=== PATIENT | male | born 1990 | race Caucasian/White ===

== ENCOUNTER 2016-07-18 15:35 | Emergency (ER) | payer SELFPAY ==
[~2016-07-18] VITALS: Ht 175.3 cm; Wt 82.0 kg
[~2016-07-18 15:35] MED LIST: PERC5TAB12 PO; PRED20 PO; ZOVI800T13 PO
[2016-07-18 15:39] VITALS: BP 131/77; PULSE 79; RESP 16; TEMP 98.2; O2SAT 99
[2016-07-18] MEDS ORDERED: AUGM875T3 PO (16:04)
--- NOTE | 2016-07-18 16:05 | PD ---
HPI Chief Complaint: Bite or Sting Time Seen by Provider: 16:04 Travel History International Travel<30 days: No Contact w/Intl Traveler<30days: No Traveled to known affect area: No History of Present Illness HPI Patient 26-year-old male presents emergency Department with complaints of a dog bite to his nose. Patient states he was clipping his dog's nails just prior to arrival and cut one of them too short and the dog bit him in the nose. Patient states his dog is otherwise healthy and his shots are up-to-date. He states his tetanus shot is up-to-date as well (2010). Patient denies any other wounds. PFSH Past Medical History Medical History: Denies Significant Hx Diminished Hearing: No Immunizations Current: Yes Influenza Vaccination: No Past Surgical History Surgical History: No Previous Surgery Social History Alcohol Use: Yes (occ) Tobacco Use: Yes (/2 ppd) Substance Use: No Allergies-Medications (Allergen,Severity, Reaction): Coded Allergies: No Known Allergies (Unverified , 07/18/16) Reported Meds & Prescriptions Reported Meds & Active Scripts Active Augmentin (Amoxicillin-Clavulanate) 875-125 Mg Tab 1 Tab PO BID 10 Days Review of Systems Except as stated in HPI: all other systems reviewed are Neg Physical Exam Narrative GENERAL: Well-nourished, well-developed patient. SKIN: There is a superficial 2 cm abrasion running the length of the nose into the nare on the right side. There is also small puncture wound on the left side of the bridge. All these wounds appear to be very superficial. Bleeding is fairly well controlled. They were cleaned with normal saline. HEAD: Normocephalic. EYES: No scleral icterus. No injection or drainage. ENT: No septal hematoma, no bleeding from nasopharynx. There is no edema of the nose nor face. NECK: Supple, trachea midline. No JVD or lymphadenopathy. CARDIOVASCULAR: Regular rate and rhythm without murmurs, gallops, or rubs. RESPIRATORY: Breath sounds equal bilaterally. No accessory muscle use. GASTROINTESTINAL: Abdomen soft, non-tender, nondistended. MUSCULOSKELETAL: No cyanosis, or edema. BACK: Nontender without obvious deformity. No CVA tenderness. Data Data Last Documented VS Vital Signs Date Time Temp Pulse Resp B/P Pulse Ox O2 Delivery O2 Flow Rate FiO2 07/18/16 15:39 98.2 79 16 131/77 99 Orders Amoxicil-Clavulanate (Augmentin) (07/18/16 16:15) MDM Medical Decision Making Medical Screen Exam Complete: Yes Emergency Medical Condition: Yes Differential Diagnosis bite, laceration, retained foreign body highly unlikely, rabies exposure highly unlikely. Narrative Course Patient was roomed emergency department, his wounds were clean. There is no indication to approximate his the wounds are already well approximated. Closure with Dermabond contraindication secondary to infection risk. Cosmetically think these wounds are very little consequence. The patient will be placed on Augmentin. Tetanus is up-to-date. No indication for rabies prophylaxis. Discussed return to ED criteria follow-up with primary care physician Diagnosis Primary Impression: Dog bite of nose Qualified Code: S01.25XA - Dog bite of nose, initial encounter Med/Other Pt SpecificInfo: Prescription(s) given Scripts Amoxicillin-Clavulanate (Augmentin)875-125 Mg Tab1 Tab PO BID 10 Days Ref 0 Prov:Mao Durbin MD 07/18/16 Disposition: 01 DISCHARGE HOME Condition: Stable Mao Durbin MD Jul 18, 2016 16:04
[2016-07-18] MEDS ORDERED: AMOXICILLIN/CLAVULANATE K 875 MG TAB PO ONE (16:15)
== END 2016-07-18 16:22 | disposition home or self-care (01) ==
LOC: PHEFT 15:35
DX: S01.25XA Open bite of nose, initial encounter (principal); F17.200 Nicotine dependence, unspecified, uncomplicated; W54.0XXA Bitten by dog, initial encounter; Y93.F9 Activity, other caregiving
CPT/HCPCS: 99283